=== PATIENT | male | born 1980 | race Caucasian/White ===

== ENCOUNTER → 2020-12-03 08:54 | Outpatient (CLI) | payer OTHER, MEDICAID, SELFPAY ==
--- NOTE | 2020-12-03 08:58 | DI.US.S_ITS ---
PROCEDURE: US ABDOMEN COMPLETE INDICATIONS: UPPER ABDOMINAL PAIN TECHNIQUE: Real-time scanning was performed of the abdominal and retroperitoneal organs, with image documentation. COMPARISON: None. FINDINGS: Liver: Liver is normal in size and homogeneous in echotexture. Gallbladder: No gallstones. No gallbladder wall thickening. Gallbladder wall measures 1.7 millimeters. No pericholecystic fluid. No sonographic Sharif sign Biliary ducts: Intrahepatic bile ducts are non-dilated. Extrahepatic bile duct caliber measures 3.9 mm. Normal is 6-7 mm or less in diameter, or 10 mm or less post-cholecystectomy. Pancreas: Visualized portions of the pancreas are sonographically normal. Spleen: Spleen is normal in size and homogeneous in echotexture. Kidneys: Kidneys are normal in size and echotexture. Right kidney measures 11.2 cm long; left kidney measures 11.0 cm long. No hydronephrosis or nephrolithiasis. No solid masses. Aorta: Visualized aorta is normal in caliber at less than 3 cm. Iliacs: Proximal common iliac arteries are normal in caliber at less than 2.5 cm. IVC: Intrahepatic inferior vena cava is patent. Miscellaneous: No free abdominal fluid. IMPRESSION: No sonographic evidence of cholelithiasis or cholecystitis. If there is continued clinical concern for cholecystitis, a nuclear medicine HIDA scan should be considered for further evaluation. Dictated by: Shayy Camp MD, PhD on 12/03/2020 at 16:48 Approved by: Shayy Camp MD, PhD on 12/03/2020 at 16:50
== END ==
PROVIDERS: PCP Naturopath; Referring Provider Naturopath; Visit Provider Naturopath
DX: R10.10 Upper abdominal pain, unspecified (principal)
CPT/HCPCS: 76700

== ENCOUNTER → 2021-04-12 14:39 | Outpatient (CLI) | payer OTHER, MEDICAID, SELFPAY ==
[2021-04-12 15:16] LABS: Appearance Urine UA CLEAR; Bilirubin Urine UA NEGATIVE (NEGATIVE); Color Urine UA YELLOW; Glucose Urine UA NEGATIVE (Negative); Ketones Urine UA NEGATIVE (NEGATIVE); Leukocyte Esterase Urine UA NEGATIVE (NEGATIVE); Nitrite Urine UA NEGATIVE (Negative); Occult Blood Urine UA NEGATIVE (Negative); Protein Urine UA NEGATIVE (Negative); Urobilinogen Urine UA 0.2 E.U./dL (0.2); pH Urine UA 6.5 (4.5-8.0)
[2021-04-12 15:26] LABS: Bacteria Urine None Seen; Culture Indicated Urine Cult Not Indicated; RBC Urine None Seen (0-5/HPF); Urine Comments Microscopic Normal; WBC Urine None Seen (0-5/HPF)
== END ==
PROVIDERS: PCP Naturopath; Referring Provider Specialist; Visit Provider Specialist
DX: N50.819 Testicular pain, unspecified (principal); R10.9 Unspecified abdominal pain; T50.Z95A Adverse effect of other vaccines and biological substances, initial encounter; G89.29 Other chronic pain
CPT/HCPCS: 81001; 99214

== ENCOUNTER → 2021-05-13 11:04 | Outpatient (CLI) | payer OTHER, MEDICAID, SELFPAY ==
--- NOTE | 2021-05-13 11:43 | DI.CT.S_ITS ---
PROCEDURE: CT CHEST ABD PEL W CON INDICATIONS: diffuse chronic abd pain,testicular pain and impotence TECHNIQUE: After the administration of oral and intravenous contrast, axial sections acquired from the supraclavicular neck to the pubic symphysis. Coronal and sagittal reformats were performed. For radiation dose reduction, the following was used: automated exposure control, adjustment of mA and/or kV according to patient size. COMPARISON: None. FINDINGS: CHEST: Lungs: Scattered subsegmental atelectasis and/or scarring. No focal consolidation. Pleura: No pleural effusions or pneumothorax. Heart: Heart size is normal. No pericardial effusion. Chest nodes: Normal. Thyroid gland: Negative Aorta: Normal in size. Pulmonary arteries: Normal. Esophagus: Normal. ABDOMEN: Liver: Normal. Gallbladder: Negative. Bile ducts: Normal. Pancreas: Normal. Spleen: Normal. Adrenals: Normal. Kidneys and ureters: Normal. Stomach and duodenum: Normal. Bowel: Moderate amount of stool. No evidence of bowel obstruction. Large amount of stool/fecal matter seen in the rectal vault. Other: No free fluid or air. Abdominal nodes: Normal. Aorta and IVC: Normal in size. Ventral wall: Normal. PELVIS: Bladder: Normal. Inguinal region: No hernia. Pelvic nodes: Normal. Bones: No suspicious bony lesions. No vertebral body compression fractures. IMPRESSION: Overall, negative examination as above. If testicular pain continues consider further evaluation with ultrasound. No evidence of bowel obstruction. Diffuse moderate stool, and prominent fecal matter within the distal rectum raising possibility of impaction or constipation. Dictated by: Kurt Coleman M.D. on 05/13/2021 at 13:57 Approved by: Kurt Coleman M.D. on 05/13/2021 at 14:06
== END ==
PROVIDERS: PCP Naturopath; Referring Provider Specialist; Visit Provider Specialist
DX: N50.819 Testicular pain, unspecified (principal); R10.9 Unspecified abdominal pain; G89.29 Other chronic pain; T50.Z95A Adverse effect of other vaccines and biological substances, initial encounter; N52.9 Male erectile dysfunction, unspecified
CPT/HCPCS: 71260; 74177

== ENCOUNTER 2021-06-14 09:25 | Day surgery (SDC) | payer OTHER, MEDICAID, SELFPAY ==
--- NOTE | 2021-06-14 | PATH_ITS ---
[facility] Accession Number: [id number] . 01 Material submitted: . PART A: colon - ASCENDING COLON POLYPS PART B: body - POLYPS AT 80CM PART C: body - POLYP AT 35CM PART D: body - POLYP AT 15CM . 02 Diagnosis: A. Ascending Colon, Polyps, Biopsies: Tubular adenomas. . B. Colon, Polyps at 80 cm, Biopsy: Sessile serrated adenoma in two of four fragments. . C. Colon, Polyp at 35 cm, Biopsy: Hyperplastic polyp. . D. Colon, Polyp at 15 cm, Biopsy: Hyperplastic polyp. [facility] 06/17/2021 1116 Local . 02 Electronically signed: . Giovanna Rosales MD, Pathologist NPI- [id number] . 01 Gross description: . A. Received in formalin, labeled ascending colon polyps, are four fragments of lock, soft tissue measuring 0.3 x 0.3 x 0.3 cm to 0.2 x 0.1 x 0.1 cm. All four fragments are entirely submitted in cassette A1. B. Received in formalin, labeled polyps at 80 cm, are three fragments of lock, soft tissue measuring 0.7 x 0.3 x 0.1 cm to 0.3 x 0.2 x 0.1 cm. One piece of lock, soft tissue with a discernable resection margin is observed, measuring 0.4 x 0.4 x 0.4 cm. The three fragments are entirely submitted in cassette B1. The piece3 with a discernable resection margin is inked, bisected, and entirely submitted in cassette B2. C. Received in formalin, labeled polyp at 35 cm, are three fragments of lock, soft tissue measuring 0.8 x 0.4 x 0.1 cm to 0.3 x 0.2 x 0.1 cm. All three fragments are entirely submitted in cassette C1. D. Received in formalin, labeled polyp at 15 cm, is one fragment of lock, soft tissue measuring 0.4 x 0.3 x 0.2 cm. The fragment is entirely submitted in cassette D1. ([id number]) /FRR 06/15/2021 1026 Local . 02 Pathologist provided ICD-10: D12.2, D12.6 . 02 CPT . 106518, 972684, 085403, 429960 Performed at: 01 [facility] [address] [id number] MD Roosevelt Warner MD Phone: [phone] Performed at: 02 [facility] [place] [id number] [place] [address] [id number] MD Giovanna Rosales MD Phone: [phone]
[2021-06-14 09:50] VITALS: BP 111/68; PULSE 71; RESP 12; TEMP 36.6; O2SAT 100; BMI 19.9
[2021-06-14] MEDS: LACTATED RINGERS 1,000 ML 200 ML IV (10:09)
--- NOTE | 2021-06-14 10:43 | PM.HP.1 ---
History of Present Illness History of Present Illness Chief complaint: [facility] [place] Narrative: Patient with a very strong family history of early GI tract polyps here for colonoscopy. Both parents had polyps. Two siblings had large polyps before there were 40. Patient History Medical History (Updated 06/14/21 @ 10:48 by Harpreet Lopez MD) Family history of polyps in the colon Family & Social History Family History Mother Cancer Hypertension Father Cancer Gallstones Grandfather Diabetes mellitus Stroke Social History: household members family Tobacco & Substance use: Smoking Status Former smoker alcohol intake current alcohol intake frequency other Substance Use Type does not use,marijuana Meds Home Medications and Allergies Home Medications Medication Instructions Recorded Confirmed Type sildenafil 25 mg tablet 30 mg PO DAILY PRN 06/14/21 06/14/21 History Allergies Allergy/AdvReac Type Severity Reaction Status Date / Time No Known Drug Allergies Allergy Verified 06/14/21 09:43 Review of Systems Review of Systems Narrative: Healthy gentleman. No cardiopulmonary GI symptoms. Exam Vital Signs (past 8 hours): - 06/14/21 09:50 Temperature 97.8 F Pulse Rate 71 Respiratory Rate 12 Blood Pressure 111/68 Pulse Oximetry 100 Oxygen Delivery Method Room Air Narrative Exam Narrative: Pleasant cooperative patient no apparent distress. Lungs are clear to auscultation. No rales or rhonchi. Heart regular rate and rhythm no murmur gallop. Abdomen is soft nontender without mass. No obvious hernias. Patient is alert and oriented x3. Assessment & Plan Assessment and plan (1) Family history of polyps in the colon: Status: Acute (2) Abdominal pain: Status: Acute Assessment & Plan narrative: Will proceed with colonoscopy. I have discussed the procedure and the rationale with the patient including risks of bleeding, perforation which would necessitate a major operation, failure to find remove all lesions and the potential to tattoo. He appeared to understand and wished to proceed. Time Spent With Patient Critical Care time: I spent a total of [] minutes of critical care time on this patient's care today; this time is exclusive of procedural time.
--- NOTE | 2021-06-14 10:50 | PM.PREOP ---
Pre-operative Note COVID-19 COVID-19 status: Negative Result date/Date tested (Pos, Neg/Pending): 06/13/21 Interval Note History & Physical reviewed/Exam performed by Physician: Yes Changes to H&P: No ASA Class (for procedural sedation): I
--- NOTE | 2021-06-14 11:11 | SUR.OPER ---
THE PATIENT HAD A BLOWN IV IN HIS RIGHT ARM SHORTLY AFTER THE ADMINISTRATION OF THE FIRST DOSE OF THE SEDATION MEDICATIONS. THE IV WAS DISCONTINUED AND RESTARTED IN THE RIGHT FOREARM BY DR. MCKEON.
--- NOTE | 2021-06-14 11:43 | PM.OP.COLON ---
Operative Date/Time/Diagnoses Date of procedure: 06/14/21 Time of procedure: 11:43 Pre-op diagnosis: Strong family history of polyps at a young age. This is his 1st colonoscopy. Post-op diagnosis: same Procedure & Clinicians Study performed: Colonoscopy with cold biopsy and hot snare polypectomy Same procedure as scheduled: Yes Indications: Screening exam in a high risk patient due to his family history. Surgeon: Harpreet Lopez Procedure Notes SCOAP/Timeout: Performed Procedure in detail: The patient was placed in the left lateral decubitus position and underwent IV sedation directed by the surgeon consisting of fentanyl and Versed. Digital exam was remarkable for a mildly enlarged prostate. The scope was inserted and advanced through the rectum into the sigmoid, descending, transverse, and ascending colon. A stiffener was inserted and pressure applied in order to reach the cecum. The cecum was reached identified by the ileocecal valve and the appendiceal opening. . The scope was gradually brought out. There were 2 small flat lesions in the ascending colon which I snared with a hot snare. They appeared to be completely destroyed. There were 3 small polyps removed with cold biopsy forceps at 80 cm, 1 at 35 cm, and 1 at 15 cm from the anal verge. All of these were under a cm and most of the more under 5 mm. . The scope ultimately was retroflexed in the rectum. The appearance was normal except for some minor scarring. The scope was removed and the patient tolerated the procedure well. The prep was excellent. Scope withdrawal time: 9 minutes approximate(23 total Sedation minutes: 48 Findings: divertiulosis (In the sigmoid and the cecal areas.) and polyp(s) (Multiple small polyps.) Specimen(s): other (Polyps) Complications: none Post-procedure Recommendations: Colonoscopy in 3 years Follow up: as needed Disposition: PACU
[2021-06-14 11:45] VITALS: BP 118/75; PULSE 72; RESP 12; O2SAT 97
[2021-06-14] MEDS: fentaNYL 250 MCG/5 ML INJ IV (11:45)
[2021-06-14] MEDS: MIDAZOLAM 5 MG/5 ML VIAL IV (11:46)
[2021-06-14 11:50] VITALS: BP 102/63; PULSE 73; RESP 12; O2SAT 98
[2021-06-14 11:55] VITALS: BP 119/75; PULSE 75; RESP 14; O2SAT 97
[2021-06-14 12:00] VITALS: BP 111/74; PULSE 68; RESP 12; O2SAT 96
== END 2021-06-14 12:14 | disposition home or self-care (01) ==
PROVIDERS: PCP Naturopath; Referring Provider Specialist; Visit Provider Specialist
PROC: 0DJD8ZZ Inspection of Lower Intestinal Tract, Via Natural or Artificial Opening Endoscopic (ICD-10-PCS; CPT 45378; principal; 2021-06-14 10:00)
DX: Z12.11 Encounter for screening for malignant neoplasm of colon (principal); K57.30 Diverticulosis of large intestine without perforation or abscess without bleeding; D12.2 Benign neoplasm of ascending colon; D12.6 Benign neoplasm of colon, unspecified
CPT/HCPCS: 45385; 45380; 99152; 99153; J2250; J3010